=== PATIENT | female | born 1985 | race Caucasian/White ===

== ENCOUNTER 2021-08-28 08:57 | Outpatient (CLI) | payer OTHER | END 2021-08-28 09:04 | disposition home or self-care (01) | LOC: LAB 08:57 | DX: E55.9 Vitamin D deficiency, unspecified (principal); D50.0 Iron deficiency anemia secondary to blood loss (chronic); D68.9 Coagulation defect, unspecified ==

== ENCOUNTER 2021-08-29 09:21 | Outpatient (CLI) | payer OTHER | END 2021-08-29 09:30 | disposition home or self-care (01) | LOC: LAB 09:21 | PROVIDERS: ATTEND Internal Medicine Gastroenterology | DX: Z32.00 Encounter for pregnancy test, result unknown (principal) ==

== ENCOUNTER → 2021-08-31 | Outpatient (CLI) | payer OTHER | END | disposition home or self-care (01) | LOC: LAB 08:15 | PROVIDERS: ATTEND Internal Medicine Gastroenterology | DX: Z20.828 Contact with and (suspected) exposure to other viral communicable diseases (principal) ==